=== PATIENT | male | born 2000 | race Caucasian/White ===

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

== ENCOUNTER 2023-01-24 22:10 | Emergency (ER) | payer BC | END 2023-01-24 22:58 | disposition home or self-care (01) | LOC: FB.ED 22:10 | DX: S01.21XA Laceration without foreign body of nose, initial encounter (principal); W26.8XXA Contact with other sharp object(s), not elsewhere classified, initial encounter | CPT/HCPCS: 12011; 99282 ==